=== PATIENT | female | born 1950 | race Caucasian/White ===

== ENCOUNTER → 2019-03-11 | Outpatient (CLI) | payer MEDICARE ==
[2019-03-11 17:06] LABS: HGB 14.8 gm/dL (11.4-16.0); MCH 29.9 pg (25.0-35.0); MCHC 33.6 g/dL (31.0-37.0); Mean Platelet Volume 7.1; Platelet Count 250 k/uL (150-450); RBC 4.95 m/uL (3.80-5.40); RDW 12.9 % (11.5-15.5); WBC 10.4 k/uL (3.8-10.6)
[2019-03-11 17:20] LABS: African American GFR (CKD) >90 (>60 ml/min/1.73 sqM); Anion Gap 10 mmol/L; Blood Urea Nitrogen 16 mg/dL (7-17); Carbon Dioxide 25 mmol/L (22-30); Chloride 102 mmol/L (98-107); Glucose 89 mg/dL (74-99); Magnesium 2.3 mg/dL (1.6-2.3); Non-African American GFR(CKD) >90 (>60 ml/min/1.73 sqM); Potassium 4.3 mmol/L (3.5-5.1); Sodium 137 mmol/L (137-145)
== END | disposition home or self-care (01) ==
LOC: LABPAT 15:24
PROVIDERS: ATTEND Internal Medicine Interventional Cardiology
DX: Z01.812 Encounter for preprocedural laboratory examination (principal); I25.10 Atherosclerotic heart disease of native coronary artery without angina pectoris; E78.00 Pure hypercholesterolemia, unspecified
CPT/HCPCS: 80051; 82565; 82947; 83735; 84520; 85027

== ENCOUNTER 2019-03-13 07:40 | Day surgery (SDC) | payer MEDICARE ==
[2019-03-12 08:42] VITALS: BMI 25.2
[~2019-03-13 07:40] MED LIST: ALPRAZolam 0.25 MG TAB PO PRN; ALPRAZolam 0.5 MG TAB PO PRN; ASPIRIN 325 MG TAB PO ONE; ATORVASTATIN 80 MG TAB PO ONE; NITROGLYCERIN SL TABS 0.4 MG TAB SUBLINGUAL PRN; SODIUM CHLORIDE 0.9% 1,000 ML in EMPTY BAG 1 BAG IV ONE
[2019-03-13 08:02] VITALS: RESP 16; TEMP 97.9
[2019-03-13] MEDS ORDERED: SODIUM CHLORIDE 0.9% 1,000 ML IV ONE (08:02)
[2019-03-13] MEDS ORDERED: LIDOCAINE 1% INJ 10MG/ML (20 ML MDV) ONE (09:55)
[2019-03-13] MEDS ORDERED: VERAPAMIL 2.5 MG/ML 2 ML AMP ONE (09:55)
[2019-03-13] MEDS ORDERED: HEPARIN SODIUM 1,000 UN/ML (10ML VL) ONE (10:28)
[2019-03-13] MEDS ORDERED: MIDAZOLAM 2 MG/2 ML VIAL IV ONE (10:43)
[2019-03-13] MEDS ORDERED: LIDOCAINE 1% INJ 10MG/ML (20 ML MDV) SQ ONE (10:49)
[2019-03-13] MEDS ORDERED: VERAPAMIL SYRINGE (5 MG/10 ML) INTRAARTER ONE (10:50)
[2019-03-13] MEDS ORDERED: IOPAMIDOL-370 100ML BTL INJ ONE (11:06)
[2019-03-13] MEDS ORDERED: SODIUM CHLORIDE 0.9% 1,000 ML IV SCH (11:15)
--- NOTE | 2019-03-13 12:04 | CC ---
CARDIAC CATHETERIZATION REPORT DATE OF SERVICE: 03/13/2019. PROCEDURE: Left heart catheterization, coronary angiography and left ventriculography. PERFORMED BY: Dr. Henok Leo. Moderate conscious sedation time was 22 minutes. Patient was administered Versed. Oxygen saturation, hemodynamics and EKG were monitored closely. 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 These studies revealed that there was evidence of hypokinesia in the anteroapical septal portion with a fixed defect on the nuclear scan, raising the possibility of a CAD. Ejection fraction was in the 40%-45% range. She was advised coronary angiography to look for the CAD given her symptoms and abnormal stress test and echocardiogram. PROCEDURE NOTE: Under local anesthesia and strict aseptic precautions, a 6-Italian sheath was placed in the right radial artery. A 3.5 left and a 4.0 right Angus catheters were used to perform coronary angiography and a pigtail catheter was used to check LV pressures and LV-gram was performed in 30 degree SALAS projection. Patient tolerated procedure well. The sheath were taken out and a TR band applied as per protocol and she was sent to the room in stable condition. CARDIAC CATHETERIZATION FINDINGS: RIGHT CORONARY ARTERY: Technically a very dominant vessel, has minor irregularities. The proximal mid and distal portion bifurcates into large PDA, PLV, both of which are free of significant disease. The dominant RCA has no significant disease. LEFT MAIN CORONARY ARTERY: This is a short patent vessel that immediately bifurcates into LAD and circumflex. Left main itself is free of significant disease. LEFT ANTERIOR DESCENDING CORONARY ARTERY: This vessel gives off two branches, both of which seem to be diagonal branches and these diagonals give of secondary branches. It appears that after the origin of the diagonal second and diagonal branch, the LAD may be totally occluded. I cannot see a stump and I do not see much antegrade flow, but there is definitely a gap and I do not see any good-sized septal branches. The diagonal appears to almost go in the distribution of the LAD, but does not quite reach the apex. It appears that there is an occlusion of mid LAD after two diagonal branches, although I cannot see a clear-cut stump. The two diagonal branches have minor irregularities of about 30%-40% but no significant disease is noted. Septal branch that is noted is just at the origin of the second diagonal is also free of significant disease. After that, the LAD does not seem to have any antegrade or retrograde filling. It is quite possible that the LAD is occluded in the midportion after two diagonal branches. LAD is not as LEFT VENTRICULOGRAM: This was performed in 30 degree SALAS projection. There was some ectopy. There is evidence of some anteroapical septal hypokinesia with estimated ejection fraction of about 40% to 45% by visual inspection without mitral regurgitation. FINAL IMPRESSION: This patient has a probable total occlusion of the mid LAD after 2 good-sized diagonal branches. LAD is probably not a very large vessel. RCA super dominant, free of significant disease and circumflex is also free of significant disease. Please go back to the body of the report and just a left posterior circumflex coronary artery this is a large tortuous nondominant vessel free of significant disease that is quite tortuous, runs laterally, has minor irregularities. . IMPRESSION: The patient has a right dominant system super dominant RCA no significant disease. LAD is totally occluded in the midportion. Most likely, although I cannot see antegrade or retrograde filling. There is a gap after 2 diagonal branches. Circumflex is free of significant disease. Ejection fraction is 40%-45% percent with distal anteroapical hypokinesia. RECOMMENDATIONS: Findings were discussed with the patient and . I am recommending that we will pursue medical therapy and no intervention is necessary. Patient has been started on beta blockers. She is also on statins and lisinopril. We will continue the current medical regimen discharged today and I will see her in the office within a week. MMODL / IJN: [id number] / [id number]
[2019-03-13 12:53] VITALS: PULSE 70
[2019-03-13 18:56] VITALS: BP 135/76
== END 2019-03-13 16:59 | disposition home or self-care (01) ==
LOC: CATHCVL 07:40
PROVIDERS: ATTEND Internal Medicine Interventional Cardiology
DX: I25.10 Atherosclerotic heart disease of native coronary artery without angina pectoris (principal); I25.82 Chronic total occlusion of coronary artery; I10 Essential (primary) hypertension; E78.5 Hyperlipidemia, unspecified; E78.00 Pure hypercholesterolemia, unspecified; Z79.82 Long term (current) use of aspirin; Z79.899 Other long term (current) drug therapy; Z82.49 Family history of ischemic heart disease and other diseases of the circulatory system
CPT/HCPCS: 93458; C1769; C1894; J2250; J2001; J1644; Q9967